=== PATIENT | female | born 1970 | race Two or more races ===

== ENCOUNTER 2021-06-16 22:03 | Inpatient (IN) | payer OTHER ==
[~2021-06-16] VITALS: Ht 172.7 cm; Wt 104.8 kg
[2021-06-16] MEDS ORDERED: SODIUM CHLORIDE 0.9% 1,000 ML IV ONE (23:00)
[2021-06-16] MEDS ORDERED: ACETAMINOPHEN 500 MG TAB PO ONE (23:00)
[2021-06-16 23:26] LABS: Basophils # (auto) 0 10 ^3/uL (0-0.2); Eosinophils # (auto) 0 10 ^3/uL (0-0.8); Hemoglobin 13.7 g/dL (12.2-16.2); Lymphocytes # (auto) 1.2 10 ^3/uL (0.4-5.4)
[2021-06-16 23:27] LABS: Basophils % (auto) 0.1 % (0.0-2.0); Eosinophils % (auto) 0.1 % (0.0-7.0); Hematocrit 42.3 % (36.0-46.0); Lymphocytes % (auto) 17.1 % (10.0-50.0); Mean Corpuscular Hemoglobin 24.7 pg (28.0-32.0); Mean Corpuscular Hgb Conc. 32.4 g/dL (32.0-36.0); Mean Corpuscular Volume 76.3 fL (80.0-100.0); Monocytes # (auto) 0.5 10 ^3/uL (0-1.3); Monocytes % (auto) 7.8 % (0.0-12.0); Neutrophils # (auto) 5.1 10 ^3/uL (1.6-8.6); Neutrophils % (auto) 74.9 % (37.0-80.0); Nucleated Red Blood Cells % 0.1 %; Red Blood Cells 5.54 10^6/uL (4.0-5.20); Red Cell Distribution Width 14.7 % (11.8-14.3); White Blood Cell 6.8 10^3/uL (4.4-10.8)
[2021-06-16 23:51] LABS: Alanine Aminotransferase 23 U/L (13-56); Albumin 3.1 g/dL (3.4-5.0); Anion Gap 11 (5-15); Aspartate Aminotransferase 16 U/L (15-37); BUN/Creatinine Ratio 10.2; Blood Urea Nitrogen 13 mg/dL (7-18); Calcium 8.9 mg/dL (8.5-10.1); Carbon Dioxide 21 mmol/L (21-32); Chloride 108 mmol/L (98-107); GFR African American 58 mL/min; GFR Non-African American 48 mL/min; Glucose 171 mg/dL (74-106); Magnesium 1.8 mg/dL (1.6-2.6); Potassium 3.4 mmol/L (3.5-5.1); Sodium 140 mmol/L (136-145)
[2021-06-16 23:56] LABS: Alkaline Phosphatase 131 U/L (45-117); Bilirubin, Total 0.3 mg/dL (0.2-1.0); Total Protein 8.1 g/dL (6.4-8.2)
[2021-06-17] LABS: Lactic Acid w/Reflex 2.2 mmol/L (0.4-2.0)
[2021-06-17 00:26] LABS: INR 0.96 (0.9-1.15); Partial Thromboplastin Time 23.6 sec (23.6-33.0)
[2021-06-17 02:27] LABS: Urine Bacteria NONE SEEN /hpf (None Seen); Urine Blood Negative /uL (Negative); Urine Hyaline Cast FEW /lpf (0 - 2); Urine Mucus FEW (None Seen); Urine Specific Gravity 1.015 (1.001-1.035); Urine WBC 9 /hpf (0 - 5)
[2021-06-17] MEDS ORDERED: POTASSIUM CHL 20 Meq TABLET PO ONE (04:15)
[2021-06-17] MEDS ORDERED: MORPHINE SULFATE INJECTION 2 MG/ML SYRG IV PRN (04:15)
[2021-06-17] MEDS ORDERED: NITROGLYCERIN 0.4 MG SL TAB SL PRN (04:15)
[2021-06-17] MEDS ORDERED: ACETAMINOPHEN 500 MG TAB PO PRN (04:15)
[2021-06-17] MEDS ORDERED: TEMAZEPAM 15 MG CAP PO PRN (04:15)
[2021-06-17] MEDS: SODIUM CHLORIDE 0.9% 1,000 ML IV SCH ×2 (04:44→16:07)
[2021-06-17] MEDS: cefTRIAXone 1GM/50ML D5W 50 ML IV SCH (04:45)
[2021-06-17] MEDS: AZITHROMYCIN 500MG/ 250ML 250 ML IV SCH (05:27)
[2021-06-17] MEDS: DexAMETHasone SOD PHOS 10MG/1ML VIAL INJ IV SCH (05:27)
[2021-06-17 08:35] LABS: Magnesium 1.8 mg/dL (1.6-2.6)
[2021-06-17 08:43] LABS: CRP High Sensitivity 3.5 mg/dL (< 0.3)
[2021-06-17 09:16] VITALS: BP 108/62
[2021-06-17] MEDS: PANTOPRAZOLE 40 MG TAB PO SCH (10:31)
[2021-06-17] MEDS: ASCORBIC ACID 1,000 MG TAB PO SCH (10:31)
[2021-06-17] MEDS: CHOLECALCIFEROL (VITD3) 2,000 UNIT CAP/TAB PO SCH (10:31)
[2021-06-17] MEDS: ZINC SULFATE 220mg CAP or TAB PO SCH (10:31)
[2021-06-17] MEDS: ENOXAPARIN SOD 40 MG/0.4 ML SYRINGE SC SCH ×2 (10:32→23:11)
[2021-06-17] MEDS: ONDANSETRON HCL 4 MG/2 ML VIAL IV PRN (15:04)
[2021-06-17] MEDS ORDERED: REMDESIVIR PER PHARMACY 0 ML IV SCH (16:15)
[2021-06-17] MEDS ORDERED: REMDESIVIR 200 MG in NS 210ml LOADING DOSE ADULT IV ONE (18:30)
[2021-06-17 22:25] VITALS: BP 136/73
[2021-06-17] MEDS: ALBUTEROL SULF HFA 90MCG INH 200DOSE IN PRN (22:45)
[2021-06-18 02:50] VITALS: BP 136/73
[2021-06-18] MEDS: SODIUM CHLORIDE 0.9% 1,000 ML IV SCH ×2 (04:00→15:33)
[2021-06-18] MEDS ORDERED: TAMO20TA9 PO (05:14)
[2021-06-18] MEDS ORDERED: CEFU500T43 PO (05:14)
[2021-06-18] MEDS ORDERED: VENL75CA78 PO (05:14)
[2021-06-18] MEDS ORDERED: MELA10CA PO (05:14)
[2021-06-18] MEDS ORDERED: GABA-339 PO (05:14)
[2021-06-18] MEDS ORDERED: BLAC540C3 PO (05:14)
[2021-06-18] MEDS ORDERED: POTA1080 PO (05:14)
[2021-06-18] MEDS ORDERED: IBUP800T26 PO (05:14)
[2021-06-18] MEDS ORDERED: ASPI81CH74 PO (05:14)
[2021-06-18] MEDS ORDERED: DIPH25CA66 PO (05:14)
[2021-06-18] MEDS ORDERED: TIZA4TAB9 PO (05:14)
[2021-06-18] MEDS ORDERED: COLE1TAB2 PO (05:14)
[2021-06-18] MEDS ORDERED: LOP2C PO (05:14)
[2021-06-18] MEDS ORDERED: AMIT25TA12 PO (05:14)
[2021-06-18 05:25] VITALS: BP 114/72
[2021-06-18 06:45] LABS: Basophils # (auto) 0 10 ^3/uL (0-0.2); Eosinophils # (auto) 0 10 ^3/uL (0-0.8); Lymphocytes # (auto) 2.2 10 ^3/uL (0.4-5.4)
[2021-06-18 06:49] LABS: Basophils % (auto) 0.6 % (0.0-2.0); Eosinophils % (auto) 0.4 % (0.0-7.0); Hematocrit 31.7 % (36.0-46.0); Hemoglobin 10.3 g/dL (12.2-16.2); Lymphocytes % (auto) 37.2 % (10.0-50.0); Mean Corpuscular Hemoglobin 25.4 pg (28.0-32.0); Mean Corpuscular Hgb Conc. 32.5 g/dL (32.0-36.0); Mean Corpuscular Volume 78.2 fL (80.0-100.0); Monocytes # (auto) 0.5 10 ^3/uL (0-1.3); Monocytes % (auto) 9.1 % (0.0-12.0); Neutrophils # (auto) 3.1 10 ^3/uL (1.6-8.6); Neutrophils % (auto) 52.7 % (37.0-80.0); Nucleated Red Blood Cells % 0.1 %; Red Blood Cells 4.06 10^6/uL (4.0-5.20); White Blood Cell 5.9 10^3/uL (4.4-10.8)
[2021-06-18 06:58] LABS: Albumin 2.5 g/dL (3.4-5.0); Calcium 8.9 mg/dL (8.5-10.1); Potassium 3.7 mmol/L (3.5-5.1)
[2021-06-18 07:08] LABS: BUN/Creatinine Ratio 12.5; Bilirubin, Total 0.2 mg/dL (0.2-1.0); CRP High Sensitivity 2.61 mg/dL (< 0.3); Magnesium 1.9 mg/dL (1.6-2.6); Total Protein 6.7 g/dL (6.4-8.2)
[2021-06-18] MEDS: ALBUTEROL SULF HFA 90MCG INH 200DOSE IN PRN ×2 (08:25→21:23)
[2021-06-18 09:00] VITALS: BP 132/85
[2021-06-18] MEDS: CHOLECALCIFEROL (VITD3) 2,000 UNIT CAP/TAB PO SCH (10:21)
[2021-06-18] MEDS: DexAMETHasone SOD PHOS 10MG/1ML VIAL INJ IV SCH (10:21)
[2021-06-18] MEDS: ASCORBIC ACID 1,000 MG TAB PO SCH (10:21)
[2021-06-18] MEDS: PANTOPRAZOLE 40 MG TAB PO SCH (10:21)
[2021-06-18] MEDS: cefTRIAXone 1GM/50ML D5W 50 ML IV SCH (10:21)
[2021-06-18] MEDS: ENOXAPARIN SOD 40 MG/0.4 ML SYRINGE SC SCH ×2 (10:21→22:15)
[2021-06-18] MEDS: ZINC SULFATE 220mg CAP or TAB PO SCH (10:21)
[2021-06-18] MEDS: AZITHROMYCIN 500MG/ 250ML 250 ML IV SCH (10:22)
[2021-06-18] MEDS: ONDANSETRON HCL 4 MG/2 ML VIAL IV PRN (11:37)
[2021-06-18] MEDS: OXYCODONE W/ ACETAMINOPHEN 5/325MG TABLET PO PRN ×2 (11:38→19:45)
[2021-06-18 13:00] VITALS: BP 135/72
[2021-06-18] MEDS ORDERED: PANT40T PO (13:45)
[2021-06-18] MEDS ORDERED: OXYC-963 PO (13:45)
[2021-06-18] MEDS: LORazepam 0.5 MG TAB PO PRN ×2 (14:11→22:30)
[2021-06-18] MEDS ORDERED: REMDESIVIR 100mg 100 MG in SODIUM CHL 0.9% 230 ML IV SCH (15:00)
[2021-06-18 17:00] VITALS: BP 103/58
[2021-06-18] MEDS ORDERED: TAMOXIFEN CITR 10 MG TAB PO ONE (17:15)
[2021-06-18] MEDS ORDERED: VENLAFAXINE HCL 37.5MG TABLET PO ONE (17:15)
[2021-06-18 22:00] VITALS: BP 142/89
[2021-06-18] MEDS ORDERED: AMITRIPTYLINE HCL 25 MG TAB PO SCH (22:00)
[2021-06-19] MEDS: SODIUM CHLORIDE 0.9% 1,000 ML IV SCH (00:20)
[2021-06-19] MEDS: ONDANSETRON HCL 4 MG/2 ML VIAL IV PRN (00:35)
[2021-06-19 05:00] VITALS: BP 151/88
[2021-06-19] MEDS: ALBUTEROL SULF HFA 90MCG INH 200DOSE IN PRN (07:31)
[2021-06-19 09:00] VITALS: BP 144/76
[2021-06-19] MEDS: cefTRIAXone 1GM/50ML D5W 50 ML IV SCH (09:48)
[2021-06-19] MEDS: ZINC SULFATE 220mg CAP or TAB PO SCH (09:48)
[2021-06-19] MEDS: ENOXAPARIN SOD 40 MG/0.4 ML SYRINGE SC SCH (09:48)
[2021-06-19] MEDS: ASCORBIC ACID 1,000 MG TAB PO SCH (09:49)
[2021-06-19] MEDS: PANTOPRAZOLE 40 MG TAB PO SCH (09:49)
[2021-06-19] MEDS: CHOLECALCIFEROL (VITD3) 2,000 UNIT CAP/TAB PO SCH (09:49)
[2021-06-19] MEDS: AZITHROMYCIN 500MG/ 250ML 250 ML IV SCH (09:49)
[2021-06-19] MEDS: DexAMETHasone SOD PHOS 10MG/1ML VIAL INJ IV SCH (09:50)
[2021-06-19] MEDS ORDERED: TAMOXIFEN CITR 10 MG TAB PO SCH (10:00)
[2021-06-19] MEDS ORDERED: VENLAFAXINE HCL 37.5MG TABLET PO SCH (10:00)
[2021-06-19 11:08] LABS: Albumin 2.6 g/dL (3.4-5.0); Calcium 8.3 mg/dL (8.5-10.1); Potassium 3.1 mmol/L (3.5-5.1)
[2021-06-19 11:13] LABS: BUN/Creatinine Ratio 9.6; Bilirubin, Total 0.2 mg/dL (0.2-1.0); Total Protein 6.7 g/dL (6.4-8.2)
[2021-06-19 13:00] VITALS: BP 140/79
== END 2021-06-19 15:58 | disposition home or self-care (01) | DRG 871 ==
LOC: EDBD 22:03 → ER 22:06 → TELE 06-17 04:20 → TELE-EAST 06-17 20:35
PROVIDERS: ADMIT Nurse Practitioner; ATTEND Internal Medicine
PROC: XW033E5 Introduction of Remdesivir Anti-infective into Peripheral Vein, Percutaneous Approach, New Technology Group 5 (ICD-10-PCS; principal; 2021-06-17)
DX: A41.89 Other specified sepsis (principal); U07.1 COVID-19; R73.03 Prediabetes; Z90.10 Acquired absence of unspecified breast and nipple; Z88.5 Allergy status to narcotic agent; Z88.6 Allergy status to analgesic agent; Z85.3 Personal history of malignant neoplasm of breast
CPT/HCPCS: 36415; 70450; 71045; 80053; 81001; 82306; 82728; 83036; 83605; 83615; 83735; 83880; 84484; 84702; 85025; 85379; 85610; 85730; 86141; 87040; 87426; 87804; 94640; 96360; G0378; J0696; J1100; J2405